=== PATIENT | female | born 1960 | race Hispanic/Latino ===

== ENCOUNTER → 2017-06-20 | Outpatient (CLI) | payer BC ==
--- NOTE | 2017-06-20 11:28 | RAD ---
EXAM DESCRIPTION: Pelvis CLINICAL HISTORY: 57 years Female, HIP PAIN COMPARISON: None. FINDINGS: Single AP view the pelvis shows postoperative changes without acute fracture or malalignment. The hip joint spaces are fairly well-maintained. No focal bone lesion. No suspicious radiopaque foreign body or soft tissue gas. A tiny calcification in the left side of the pelvis probably represents a phlebolith. IMPRESSION: Postoperative changes and a probable left-sided pelvic phlebolith, but no additional abnormality to explain hip pain. Electronically signed by: Valerio Kitchen MD 06/20/2017 11:28 AM [facility]
--- NOTE | 2017-06-20 11:28 | RAD ---
EXAM DESCRIPTION: Knee,Right Complete CLINICAL HISTORY: 57 years Female, KNEE PAIN COMPARISON: None. FINDINGS: 4 views of the right knee show no acute fracture or malalignment. Is a moderate size right knee joint effusion. Mild medial joint space narrowing is also noted. IMPRESSION: Mild degenerative changes in the medial compartment and a moderate-sized right knee joint effusion without acute fracture or malalignment. Electronically signed by: Valerio Kitchen MD 06/20/2017 11:27 AM [facility]
== END | disposition home or self-care (01) ==
LOC: RAD 08:59
PROVIDERS: ATTEND Orthopaedic Surgery
DX: M25.561 Pain in right knee (principal); M25.551 Pain in right hip